=== PATIENT | male | born 1980 | race Caucasian/White ===

== ENCOUNTER 2019-03-19 06:51 | Emergency (ER) | payer OTHER ==
[~2019-03-19] VITALS: Ht 190.5 cm; Wt 97.5 kg
[2019-03-19 06:57] VITALS: Ht 190.5 cm; Wt 97.5 kg
[2019-03-19 10:01] VITALS: BP 141/93
== END 2019-03-19 10:01 | disposition home or self-care (01) ==
LOC: ED 06:51
DX: S01.111A Laceration without foreign body of right eyelid and periocular area, initial encounter (principal); S80.02XA Contusion of left knee, initial encounter; S80.01XA Contusion of right knee, initial encounter; S09.8XXA Other specified injuries of head, initial encounter; F17.210 Nicotine dependence, cigarettes, uncomplicated; V19.9XXA Pedal cyclist (driver) (passenger) injured in unspecified traffic accident, initial encounter; Y93.I9 Activity, other involving external motion; Y92.413 State road as the place of occurrence of the external cause; Y99.8 Other external cause status
CPT/HCPCS: 90715; 99406